=== PATIENT | male | born 1965 | race Caucasian/White ===

== ENCOUNTER → 2020-10-12 | Day surgery (SDC) | payer OTHER ==
[~2020-10-12] MED LIST: 24HR ALLERGY REL5 MG PO; ASPIRIN325 MG PO; AZITHROMYCIN500 MG PO; BACTROBAN OINT22 GM EXT; BREO ELLIPTA 21 EACH INH; CLEOCIN HCL300 MG PO; CRESTOR20 MG PO; FLOVENT 220.1 GM/INH INH; IBU800 MG PO; MEDROL4 MG PO; NAPROSYN500 MG PO; OMNICEF 300 MG300 MG PO; SINGULAIR10 MG PO; TIZANIDINE HCL2 MG PO; VITAMIN D PO
== END | disposition home or self-care (01) ==
LOC: OR 07:22
DX: D12.2 Benign neoplasm of ascending colon (principal); D12.4 Benign neoplasm of descending colon; K21.00 Gastro-esophageal reflux disease with esophagitis, without bleeding; K29.70 Gastritis, unspecified, without bleeding; K44.9 Diaphragmatic hernia without obstruction or gangrene; K92.1 Melena; N40.0 Benign prostatic hyperplasia without lower urinary tract symptoms; D23.111 Other benign neoplasm of skin of right upper eyelid, including canthus; F41.9 Anxiety disorder, unspecified; I10 Essential (primary) hypertension; I25.2 Old myocardial infarction; H02.89 Other specified disorders of eyelid; M10.9 Gout, unspecified; E78.5 Hyperlipidemia, unspecified; R06.02 Shortness of breath; G43.909 Migraine, unspecified, not intractable, without status migrainosus; E55.9 Vitamin D deficiency, unspecified; M06.9 Rheumatoid arthritis, unspecified; R01.1 Cardiac murmur, unspecified; J30.9 Allergic rhinitis, unspecified; I00 Rheumatic fever without heart involvement; E66.01 Morbid (severe) obesity due to excess calories; Z68.32 Body mass index [BMI] 32.0-32.9, adult; Z80.0 Family history of malignant neoplasm of digestive organs; Z87.19 Personal history of other diseases of the digestive system; Z95.2 Presence of prosthetic heart valve; Z79.82 Long term (current) use of aspirin; Z79.899 Other long term (current) drug therapy; Z79.51 Long term (current) use of inhaled steroids; Z79.52 Long term (current) use of systemic steroids
CPT/HCPCS: J2001; J2704; J7120

== ENCOUNTER → 2021-09-15 | Outpatient (CLI) | payer OTHER | LOC: KOH-I 08:37 | DX: M50.81 Other cervical disc disorders, high cervical region (principal) | CPT/HCPCS: 72141 ==

== ENCOUNTER → 2021-09-29 | Outpatient (CLI) | payer OTHER | LOC: KOH-I 09-24 11:30 | DX: M25.561 Pain in right knee (principal) | CPT/HCPCS: 76882 ==